=== PATIENT | male | born 1985 | race Caucasian/White ===

== ENCOUNTER 2018-08-02 23:12 | Emergency (ER) | payer SELFPAY ==
[~2018-08-02] VITALS: Ht 165.1 cm; Wt 78.5 kg
[2018-08-02 23:29] VITALS: Ht 165.1 cm; Wt 78.5 kg
[2018-08-03 01:27] VITALS: BP 148/95
== END 2018-08-03 01:27 | disposition home or self-care (01) ==
LOC: ED 23:12
DX: S61.211A Laceration without foreign body of left index finger without damage to nail, initial encounter (principal); W45.8XXA Other foreign body or object entering through skin, initial encounter; Y93.89 Activity, other specified; Y92.89 Other specified places as the place of occurrence of the external cause; Y99.8 Other external cause status
CPT/HCPCS: Q0092